=== PATIENT | female | born 1980 | race African-American/Black ===

== ENCOUNTER 2018-03-04 17:18 | Emergency (ER) | payer SELFPAY ==
[~2018-03-04] VITALS: Ht 170.2 cm; Wt 77.3 kg
[2018-03-04 17:21] VITALS: BP 143/99; PULSE 96; TEMP 98.5
[2018-03-04] MEDS ORDERED: PEN-VEE K500 MG PO (17:41)
[2018-03-04] MEDS ORDERED: NORCO 325 MG-51 TAB PO (17:41)
== END 2018-03-04 18:02 | disposition home or self-care (01) ==
LOC: COL.ER 17:18
DX: K04.7 Periapical abscess without sinus (principal); F17.210 Nicotine dependence, cigarettes, uncomplicated